=== PATIENT | male | born 1995 | race Caucasian/White ===

== ENCOUNTER 2017-06-15 15:22 | Emergency (ER) | payer MEDICAID, SELFPAY ==
[2017-06-15 16:24] VITALS: BP 110/74; PULSE 75; RESP 16; TEMP 37.1; O2SAT 98; BMI 21.2
--- NOTE | 2017-06-15 16:49 | HMH.EDUTC ---
[place] Clinical Impression: Rash Disposition: Home, Self-Care Condition on Discharge: Good Instructions: DI for Rash, DI for General Allergic Reactions Additional Instructions: Follow up with family doctor if symptoms worsen or do not improve Return if needed Check house for insects/bugs make sure to check your bed and carpet Follow up with Dermatology if symptoms persist Aveeno baths may help with itching Prescriptions: Hydrocortisone [Hydrocortisone 2.5% Cream 28gm Tube] 1 gm TOPICAL QID #1 cream..g. Referrals: Kristi Govea MD [Consulting Physician] - Time of Disposition: 17:13 Medical Decision Making - Medical Records Medical records reviewed: Yes: I reviewed the patient's medical records. Vital Signs: 06/15/17 16:24 Temperature 98.7 F Temperature Source Oral Pulse Rate [Left Brachial] 75 Respiratory Rate 16 Blood Pressure [Right Arm] 110/74 Blood Pressure Mean [Right Arm] 86 Blood Pressure Source [Right Arm] Automatic Cuff Blood Pressure Position [Right Arm] Sitting 02 Sat by Pulse Oximetry 98 Oxygen Delivery Method Room Air - John Inquiry Pt receiving controlled substance: No John was queried for this patient: No [facility] [place] - General Stated complaint: Rash Back and Stomach Mode of Arrival: Ambulatory Source of Information: Patient Limitations: No Limitations Description of Symptoms (Recalled from Triage Doc. by RN): RASH X 4 DAYS. GETS WORSE WHEN HE GETS HOT HEENT Symptoms (Recalled from RN notes): No Resp Symptoms (Recalled from RN notes): No Skin Symptoms (Recalled from RN notes): Yes (RASH) MS Symptoms (Recalled from RN notes): No Functional Status (Recalled from RN notes): NA - History of Present Illness Provider Complaint: Patient state that for the last 4 days he noticed that he had some kind of rash on his arms, stomach, back and belt line of his pants State that he was worried that he may have scabies and wanted to have rash looked at to see - Related Data Previous Rx's Medication Instructions Recorded Hydrocortisone [Hydrocortisone 1 gm TOPICAL QID #1 cream..g. 06/15/17 2.5% Cream 28gm Tube] Allergies Allergy/AdvReac Type Severity Reaction Status Date / Time amoxicillin [AMOXICILLIN] Allergy Unknown Unverified 05/14/17 15:01 azithromycin Allergy Unknown Unverified 05/14/17 15:01 [From ZITHROMAX Z-GLEN] - Worker's Comp Is this a Worker's Comp case?: No H History I have reviewed the patient's past medical history: Yes Medical History: Denies:: Cancer, Diabetes Mellitus Type 1, Diabetes Mellitus Type 2, MRSA Amputation: No Fractures: No - *Social History Alcohol Intake: never - Psychiatric History Expresses thoughts of harming self/others: None Suicide Plan Description: No Plan ROS Obtained: Yes All systems reviewed & no additional complaints - Integumentary/Breasts Skin/Breast: Reports rash Physical Exam - General General appearance: alert, in no apparent distress - Respiratory Respiratory exam: Present: normal lung sounds bilaterally. Absent: respiratory distress - Cardiovascular Cardiovascular exam: Present: regular rate, normal rhythm. Absent: JVD - Neurological Exam Neurological exam: Present: alert, oriented X3 - Skin Skin exam: Present: rash, other (Raised round red rash like that seen with insect bites no signs of rash between fingers like that seen with scabies, patient had bites/rash noted on chest, back, arms and belt line States that itching seems worse when he gets hot and recently started after friends stayed at his house and unsure if they may have brought something in on them)
--- NOTE | 2017-06-15 17:02 | ED_ITS ---
[facility] [place] Clinical Impression: Rash Disposition: Home, Self-Care Condition on Discharge: Good Instructions: DI for Rash, DI for General Allergic Reactions Additional Instructions: Follow up with family doctor if symptoms worsen or do not improve Return if needed Check house for insects/bugs make sure to check your bed and carpet Follow up with Dermatology if symptoms persist Aveeno baths may help with itching Prescriptions: Hydrocortisone [Hydrocortisone 2.5% Cream 28gm Tube] 1 gm TOPICAL QID #1 cream..g. Referrals: Kristi Govea MD [Consulting Physician] - Time of Disposition: 17:13 Medical Decision Making - Medical Records Medical records reviewed: Yes: I reviewed the patient's medical records. Vital Signs: 06/15/17 16:24 Temperature 98.7 F Temperature Source Oral Pulse Rate [Left Brachial] 75 Respiratory Rate 16 Blood Pressure [Right Arm] 110/74 Blood Pressure Mean [Right Arm] 86 Blood Pressure Source [Right Arm] Automatic Cuff Blood Pressure Position [Right Arm] Sitting 02 Sat by Pulse Oximetry 98 Oxygen Delivery Method Room Air - John Inquiry Pt receiving controlled substance: No John was queried for this patient: No [facility] [place] - General Stated complaint: Rash Back and Stomach Mode of Arrival: Ambulatory Source of Information: Patient Limitations: No Limitations Description of Symptoms (Recalled from Triage Doc. by RN): RASH X 4 DAYS. GETS WORSE WHEN HE GETS HOT HEENT Symptoms (Recalled from RN notes): No Resp Symptoms (Recalled from RN notes): No Skin Symptoms (Recalled from RN notes): Yes (RASH) MS Symptoms (Recalled from RN notes): No Functional Status (Recalled from RN notes): NA - History of Present Illness Provider Complaint: Patient state that for the last 4 days he noticed that he had some kind of rash on his arms, stomach, back and belt line of his pants State that he was worried that he may have scabies and wanted to have rash looked at to see - Related Data Previous Rx's Medication Instructions Recorded Hydrocortisone [Hydrocortisone 1 gm TOPICAL QID #1 cream..g. 06/15/17 2.5% Cream 28gm Tube] Allergies Allergy/AdvReac Type Severity Reaction Status Date / Time amoxicillin [AMOXICILLIN] Allergy Unknown Unverified 05/14/17 15:01 azithromycin Allergy Unknown Unverified 05/14/17 15:01 [From ZITHROMAX Z-GLEN] - Worker's Comp Is this a Worker's Comp case?: No H History I have reviewed the patient's past medical history: Yes Medical History: Denies:: Cancer, Diabetes Mellitus Type 1, Diabetes Mellitus Type 2, MRSA Amputation: No Fractures: No - *Social History Alcohol Intake: never - Psychiatric History Expresses thoughts of harming self/others: None Suicide Plan Description: No Plan ROS Obtained: Yes All systems reviewed & no additional complaints - Integumentary/Breasts Skin/Breast: Reports rash Physical Exam - General General appearance: alert, in no apparent distress - Respiratory Respiratory exam: Present: normal lung sounds bilaterally. Absent: respiratory distress - Cardiovascular Cardiovascular exam: Present: regular rate, normal rhythm. Absent: JVD - Neurological Exam Neurological exam: Present: alert, oriented X3 - Skin Skin exam: Present: rash, other (Raised round red rash
[2017-06-15 17:18] VITALS: BP 108/60; PULSE 85; RESP 14; TEMP 36.7; O2SAT 99
== END 2017-06-15 17:18 | disposition home or self-care (01) ==
PROVIDERS: Emergency Provider Nurse Practitioner; Family Provider Family Medicine
DX: R21 Rash and other nonspecific skin eruption (principal); Z88.1 Allergy status to other antibiotic agents; Z88.3 Allergy status to other anti-infective agents
CPT/HCPCS: 99201

== ENCOUNTER 2018-11-12 09:24 | Emergency (ER) | payer SELFPAY ==
--- NOTE | 2018-11-12 09:35 | XR_ITS ---
XR knee LT 3V HISTORY: Posttraumatic pain ITS.REASON: pain ORDERING PHYSICIAN: Frances Vasquez APRN PATIENT AGE: 23 years COMPARISON: None FINDINGS: No fracture or dislocation. No lytic or blastic change. Normal mineralization. No significant arthritic changes evident. There may be a small suprapatellar effusion. There is some mild soft tissue swelling at the tibial tuberosity. IMPRESSION: No acute fracture. Possible small suprapatellar effusion
[2018-11-12 09:39] VITALS: BP 141/69; PULSE 90; RESP 18; TEMP 36.7; O2SAT 95; BMI 21.4
--- NOTE | 2018-11-12 09:43 | PC.NURSE ---
PT TO RAD
--- NOTE | 2018-11-12 09:56 | HMH.EDUTC ---
[facility] [place] Disposition Clinical Impression: Left knee injury Qualifiers: Encounter type: initial encounter Qualified Code(s): S89.92XA - Unspecified injury of left lower leg, initial encounter Disposition: Home, Self-Care Condition on Discharge: Good Instructions: DI for Knee Pain, How To Perform RICE (Rest, Ice, Compress, Elevate), How to Apply an Collin Wrap Additional Instructions: *weight bearing as tolerated *RICE, Rest the extremity, Ice 15-20 minutes 3-4 times daily, Compress- wear the collin wrap as discussed as much as possible to help reduce swelling and pain, Elevate the extremity when at rest *Collin wrap is for support and help control swelling, use it except in the shower. Be sure that is not to tight but not to loose either *Elevate when resting *Over the counter Ibuprofen 600-800mg every 6-8 hours as needed for pain an inflammation. If need something more can take Tylenol in between doses of Ibuprofen to help Immediately follow up with your family doctor for new or worsening of symptoms, or no noticeable improvement over the next 3-5 days Follow up with family doctor or Orthopedics if no improvement Call back to [facility] later this evening for official radiology reading of your knee xray Straight to ER if any life threatening symptoms Referrals: Provider,Referral, MD [Primary Care Provider] - As needed Natasha Hagan MD [Physician] - Hi Kang MD [Staff Physician] - Forms: Work/School Release Time of Disposition: 10:04 Medical Decision Making - John Inquiry Pt receiving controlled substance: No John was queried for this patient: No Vital Signs: 11/12/18 09:39 Temperature 98.1 F Temperature Source Oral Pulse Rate [Right Radial] 90 Respiratory Rate 18 Blood Pressure [Right Arm] 141/69 H Blood Pressure Mean [Right Arm] 93 Blood Pressure Source [Right Arm] Automatic Cuff Blood Pressure Position [Right Arm] Sitting 02 Sat by Pulse Oximetry 95 Oxygen Delivery Method Room Air Orders (Tests/Meds): ORDERS Category Date Time Status XR knee LT 3V Stat Exams 11/12/18 09:35 Ordered - Radiology Data #1 Image(s): Knee Image Reviewed: Yes I reviewed the patient's radiology image w/the ED provider Preliminary Findings: No Fracture Seen Discussed with Dr Mcconnell, no acute fracture, small effusion [facility] [place] HPI - General Stated complaint: lt knee swollen and hurting ao [id number] @2300 Time Seen by Provider: 11/12/18 09:56 Mode of Arrival: Ambulatory Source of Information: Patient Limitations: No Limitations Description of Symptoms (Recalled from Triage Doc. by RN): C/O LT KNEE PAIN. PT STATES THAT HE HIT IT ON SOME SLATS AT WORK LAST NIGHT. HEENT Symptoms (Recalled from RN notes): No Resp Symptoms (Recalled from RN notes): No Skin Symptoms (Recalled from RN notes): No MS Symptoms (Recalled from RN notes): Yes (LT KNEE INJURY) Functional Status (Recalled from RN notes): N/A - History of Present Illness Provider Complaint: Patient states that he was at work last night and fell into a plastic base and hit his left knee on the corner of the base State that ever since he has been having pain and swelling in the left knee and hurts when she walks - Related Data Previous Rx's Medication Instructions Recorded Hydrocortisone [Hydrocortisone 1 gm TOPICAL QID #1 cream..g. 06/15/17 2.5% Cream 28gm Tube] Allergies Allergy/AdvReac Type Severity Reaction Status Date / Time amoxicillin [AMOXICILLIN] Allergy Unknown Unverified 05/14/17 15:01 azithromycin Allergy Unknown Unverified 05/14/17 15:01 [From ZITHROMAX Z-GLEN] - Worker's Comp Is this a Worker's Comp case?: No [facility] History - Hepatitis A Screen Drug use history?: No High risk sexual behaviors?: No History of sexually transmitted infection?: No Currently employed?: No Childcare worker?: No Do you have indoor plumbing?: Yes Do you have electricity?: Yes Attestation statement:: This patient has been screened for Hepatiti
--- NOTE | 2018-11-12 09:59 | ED_ITS ---
[facility] [place] Disposition Clinical Impression: Left knee injury Qualifiers: Encounter type: initial encounter Qualified Code(s): S89.92XA - Unspecified injury of left lower leg, initial encounter Disposition: Home, Self-Care Condition on Discharge: Good Instructions: DI for Knee Pain, How To Perform RICE (Rest, Ice, Compress, Elevate), How to Apply an Collin Wrap Additional Instructions: *weight bearing as tolerated *RICE, Rest the extremity, Ice 15-20 minutes 3-4 times daily, Compress- wear the collin wrap as discussed as much as possible to help reduce swelling and pain, Elevate the extremity when at rest *Ocllin wrap is for support and help control swelling, use it except in the shower. Be sure that is not to tight but not to loose either *Elevate when resting *Over the counter Ibuprofen 600-800mg every 6-8 hours as needed for pain an inflammation. If need something more can take Tylenol in between doses of Ibuprofen to help Immediately follow up with your family doctor for new or worsening of symptoms, or no noticeable improvement over the next 3-5 days Follow up with family doctor or Orthopedics if no improvement Call back to [facility] later this evening for official radiology reading of your knee xray Straight to ER if any life threatening symptoms Referrals: Provider,Referral, MD [Primary Care Provider] - As needed Natasha Hagan MD [Physician] - Hi Kang MD [Staff Physician] - Forms: Work/School Release Time of Disposition: 10:04 Medical Decision Making - John Inquiry Pt receiving controlled substance: No John was queried for this patient: No Vital Signs: 11/12/18 09:39 Temperature 98.1 F Temperature Source Oral Pulse Rate [Right Radial] 90 Respiratory Rate 18 Blood Pressure [Right Arm] 141/69 H Blood Pressure Mean [Right Arm] 93 Blood Pressure Source [Right Arm] Automatic Cuff Blood Pressure Position [Right Arm] Sitting 02 Sat by Pulse Oximetry 95 Oxygen Delivery Method Room Air Orders (Tests/Meds): ORDERS Category Date Time Status XR knee LT 3V Stat Exams 11/12/18 09:35 Ordered - Radiology Data #1 Image(s): Knee Image Reviewed: Yes I reviewed the patient's radiology image w/the ED provider Preliminary Findings: No Fracture Seen Discussed with Dr Mcconnell, no acute fracture, small effusion [facility] [place] HPI - General Stated complaint: lt knee swollen and hurting ao [id number] @2300 Time Seen by Provider: 11/12/18 09:56 Mode of Arrival: Ambulatory Source of Information: Patient Limitations: No Limitations Description of Symptoms (Recalled from Triage Doc. by RN): C/O LT KNEE PAIN. PT STATES THAT HE HIT IT ON SOME SLATS AT WORK LAST NIGHT. HEENT Symptoms (Recalled from RN notes): No Resp Symptoms (Recalled from RN notes): No Skin Symptoms (Recalled from RN notes): No MS Symptoms (Recalled from RN notes): Yes (LT KNEE INJURY) Functional Status (Recalled from RN notes): N/A - History of Present Illness Provider Complaint: Patient states that he was at work last night and fell into a plastic base and hit his left knee on the corner of the base State that ever since he has been having pain and swelling in the left knee and hurts when she walks - Related Data Previous Rx's Medication Instructions Recorded Hydrocortisone [Hydrocortisone 1 gm TOPICAL QID #1 cream..g.
[2018-11-12 10:09] VITALS: BP 141/69; PULSE 90; RESP 18; TEMP 36.7; O2SAT 95
== END 2018-11-12 10:10 | disposition home or self-care (01) ==
PROVIDERS: Emergency Provider Nurse Practitioner; PCP Emergency Medicine
DX: S89.92XA Unspecified injury of left lower leg, initial encounter (principal); W22.8XXA Striking against or struck by other objects, initial encounter
CPT/HCPCS: 73562; 99201

== ENCOUNTER 2021-02-10 15:03 | Emergency (ER) | payer SELFPAY ==
[2021-02-10 16:20] VITALS: BP 140/87; PULSE 78; RESP 16; TEMP 36.7; O2SAT 100; BMI 20.7
--- NOTE | 2021-02-10 16:24 | XR_ITS ---
PROCEDURE INFORMATION: Exam: XR Left Clavicle, Complete Exam date and time: 02/10/2021 4:24 PM Age: 25 years old Clinical indication: Left; Patient HX: Pain lt shoulder; Additional info: Pain, swelling, no known injury TECHNIQUE: Imaging protocol: XR Left clavicle complete. Views: Any number of views. COMPARISON: CR XR SHOULDER LT MIN 2V 02/10/2021 4:30 PM FINDINGS: Bones/joints: Osseous anatomic alignment is well preserved. No acutely displaced fracture or dislocation. Joint spaces are well preserved. Soft tissues: There is no significant soft tissue swelling. Visualized chest is unremarkable. IMPRESSION: Negative for acute skeletal pathology.
--- NOTE | 2021-02-10 16:24 | XR_ITS ---
PROCEDURE INFORMATION: Exam: XR Left Shoulder Exam date and time: 02/10/2021 4:24 PM Age: 25 years old Clinical indication: Left; Patient HX: Lt shoulder pain; Additional info: Pain, swelling, no known injury TECHNIQUE: Imaging protocol: XR Left shoulder. Views: 2 or more views. COMPARISON: CR CXR CHEST(2 VIEWS-NOT PORTABLE) 05/05/2015 12:59 AM FINDINGS: Bones/joints: Osseous anatomic alignment is well preserved. No acutely displaced fracture or dislocation. Joint spaces are well preserved. Soft tissues: There is no significant soft tissue swelling. Visualized chest is unremarkable. IMPRESSION: Negative for acute skeletal pathology.
--- NOTE | 2021-02-10 17:37 | HMH.EDUTC ---
[facility] [place] Disposition Clinical Impression: Tendinopathy of right shoulder Right shoulder pain Qualifiers: Chronicity: acute Qualified Code(s): M25.511 - Pain in right shoulder Disposition: Home, Self-Care Condition on Discharge: Good Additional Instructions: Go home and rest. It would be best if you rested it for the next few days at least. Rest the extremity, apply ice for 15 minutes as tolerated three or four times per day, Elevate the extremity as tolerated while you are resting. Take the steroids (medrol dose pack) as directed. Follow up with Dr. Kang (orthopedics). I put in a referral but you need to call his office and schedule an appointment. You really need to follow up regardless if the medications help you that we prescribed. Your symptoms could come back later. Follow up with your regular doctor. GO TO THE ER FOR ANY WORSENING SYMPTOMS The muscle relaxer (cyclobenzaprine-flexeril) might not help much, because it's not likely to be a muscle that's causing your symptoms. But, this medication might at least help you get comfortable enough to sleep for a time. It will make you drowsy, so don't drive or operate heavy machinery after taking it. Prescriptions: Cyclobenzaprine HCl [Cyclobenzaprine 10mg Tab] 10 mg PO BIDP PRN #20 tab PRN Reason: Muscle Spasm Transmission Status: Received by [id number] methylPREDNISolone [Medrol] 4 mg PO DIRECTED 6 Days #21 packet Transmission Status: Received by [id number] Referrals: Mathew Yanez MD [Primary Care Provider] - Hi Kang MD [Staff Physician] - Forms: Work/School Release Time of Disposition: 17:58 Medical Decision Making - Medical Records Medical records reviewed: No: I reviewed the patient's medical records. - John Inquiry Pt receiving controlled substance: No Vital Signs: 02/10/21 16:20 02/10/21 18:08 Temperature 98.1 F 98.1 F Temperature Source Oral Pulse Rate 78 Pulse Rate [Right Radial] 78 Respiratory Rate 16 16 Blood Pressure 140/87 Blood Pressure [Right Arm] 140/87 Blood Pressure Mean [Right Arm] 104 Blood Pressure Source [Right Arm] Automatic Cuff Blood Pressure Position [Right Arm] Sitting 02 Sat by Pulse Oximetry 100 Oxygen Delivery Method Room Air - Radiology Data #1 Image(s): Shoulder Image Reviewed: Yes I reviewed the patient's radiology image, Yes I have reviewed radiologist's interpretation Preliminary Findings: Normal/NAD, No Fracture Seen PROCEDURE INFORMATION: Exam: XR Left Shoulder Exam date and time: 02/10/2021 4:24 PM Age: 25 years old Clinical indication: Left; Patient HX: Lt shoulder pain; Additional info: Pain, swelling, no known injury TECHNIQUE: Imaging protocol: XR Left shoulder. Views: 2 or more views. COMPARISON: CR CXR CHEST(2 VIEWS-NOT PORTABLE) 05/05/2015 12:59 AM FINDINGS: Bones/joints: Osseous anatomic alignment is well preserved. No acutely displaced fracture or dislocation. Joint spaces are well preserved. Soft tissues: There is no significant soft tissue swelling. Visualized chest is unremarkable. IMPRESSION: Negative for acute skeletal pathology. #2 Image(s): Clavicle Image Reviewed: Yes I reviewed the patient's radiology image, Yes I have reviewed radiologist's interpretation Preliminary Findings: Normal/NAD, No Fracture Seen PROCEDURE INFORMATION: Exam: XR Left Clavicle, Complete Exam date and time: 02/10/2021 4:24 PM Age: 25 years old Clinical indication: Left; Patient HX: Pain lt shoulder; Additional info: Pain, swelling, no known injury TECHNIQUE: Imaging protocol: XR Left clavicle complete. Views: Any number of views. COMPARISON: CR XR SHOULDER LT MIN 2V 02/10/2021 4:30 PM FINDINGS: Bones/joints: Osseous anatomic alignment is well preserved. No acutely displaced fracture or dislocation. Join
[2021-02-10 18:08] VITALS: BP 140/87; PULSE 78; RESP 16; TEMP 36.7; O2SAT 100
== END 2021-02-10 18:09 | disposition home or self-care (01) ==
PROVIDERS: Emergency Provider Nurse Practitioner Family; PCP Emergency Medicine
DX: M67.912 Unspecified disorder of synovium and tendon, left shoulder (principal)
CPT/HCPCS: 73000; 73030; 99202; G0463

== ENCOUNTER 2021-06-15 14:19 | Emergency (ER) | payer SELFPAY ==
[2021-06-15 14:20] VITALS: BP 162/95; PULSE 117; RESP 16; TEMP 36.7; O2SAT 97; BMI 21.4
--- NOTE | 2021-06-15 15:23 | HMH.EDGENADL ---
ED Disposition Clinical Impression: Neck pain Left shoulder pain Qualifiers: Chronicity: acute Qualified Code(s): M25.512 - Pain in left shoulder Disposition: Home, Self-Care Condition on Discharge: Good Additional Instructions: Sling as needed Prednisone as prescribed. Sweet as needed for pain. Follow-up with orthopedics, Dr. Grant, call for appointment. Off work until Saturday. Additional instructions for CONTROLLED SUBSTANCES: You have been prescribed a medication that is a controlled substance. Controlled substances include pain medications known as opiates and sedative nerve medications known as benzodiazepines. Tramadol, fioricet, and gabapentin are also controlled substances. Some common opiates include: Codeine (such as Tylenol #3) Hydrocodone (Vicodin, Lortab, Lorcet, Sweet) Oxycodone (Percocet, Percodan, Oxycodone, Oxy IR) Some common benzodiazepines include: Diazepam (Valium) Lorazepam (Ativan) Alprazolam (Xanax) Clonazepam (Klonopin) Oxazepam (Serax) All of these controlled substances are highly addictive and frequently abused. Misuse can and frequently does lead to addiction as well as overdose and . Medication should be stored in a locked cabinet or other secure storage unit. Do not store the medication in a motor vehicle. Short term supplies, 3 days or less, are prescribed because of the highly addictive nature of the medication. Any of the controlled substance medication NOT taken should be disposed of properly and NOT SAVED. The recommended method of disposing of unused medications is: Place the medicines in a sealable plastic bag. If the medicine is a solid, crush it or add water to dissolve it. Add something undesirable (cat litter, coffee grounds, etc.) Dispose of sealed bag in household trash Do not flush or pour unused medicines down a sink or drain. Controlled substances should not be shared, given away or sold. Because of the addictive nature and frequent abuse, these medications are sometimes stolen. These medications should be kept in a safe place where they cannot be stolen. Do not keep them in your car or purse. Lost or stolen prescriptions for controlled substances WILL NOT BE REFILLED in this emergency department, regardless of whether a police report was filed. Prescriptions: Hydrocod/Acet 5/325 mg [Sweet 5/325mg tablet] 1 tab PO Q6HP PRN #10 tab PRN Reason: Pain Transmission Status: Received by [facility] # predniSONE [Prednisone 20mg Tab] 20 mg PO BID #10 tab Transmission Status: Received by [facility] # Referrals: Mathew Yanez MD [Primary Care Provider] - Efra Grant JR, MD [Physician] - Forms: Work/School Release - Critical Care Critical Care Time: No Attestation: On 06/15/21, the high probability of a clinically significant, sudden or life threatening deterioration of the following system(s) required my full and direct attention, intervention and personal management. The time I documented below is in addition to time spent performing reported procedures but includes the following listed in this critical care notation. Medical Decision Making - John Inquiry Pt receiving controlled substance: Yes John was queried for this patient: Yes Risks and benefits of using a controlled substance: were discussed with pt by me Vital Signs: 06/15/21 14:20 Temperature 98.1 F Temperature Source Oral Pulse Rate [Right Radial] 117 H Respiratory Rate 16 Blood Pressure [Right Arm] 162/95 H Blood Pressure Mean [Right Arm] 117 Blood Pressure Source [Right Arm] Automatic Cuff Blood Pressure Position [Right Arm] Sitting 02 Sat by Pulse Oximetry 97 Oxygen Delivery Method Room Air Orders (Tests/Meds): ED MEDICATIONS Discontinued Medications Generic Name Dose Route Start Last Admin Trade Name Freq PRN Reason Stop Dose Admin Dexamethasone Sodium Phosphate 10 mg 06/15/21 16:14
--- NOTE | 2021-06-15 15:38 | XR_ITS ---
FINAL REPORT CLINICAL HISTORY: left sided neck pain, stiff neck, no injury FINDINGS: 3 Views were obtained. There is no acute fracture. There is straightening of the normal cervical curvature which could be due to positioning or muscle spasm. There is leftward curvature. There is no malalignment. The disc spaces are maintained. IMPRESSION: No acute process. Reviewed, Interpreted and Dictated by Lauri Jose III, MD Transcribed by Caio Crowder Authenticated by Lauri Jose III, MD on 06/15/2021 04:25:[address] [facility]
--- NOTE | 2021-06-15 15:39 | XR_ITS ---
FINAL REPORT CLINICAL HISTORY: left shoulder pain, into left side of neck FINDINGS: LEFT SHOULDER 3 views demonstrate no acute fracture or dislocation. The joint spaces appear normal. The visualized bony structures are well aligned. No soft tissue abnormality is seen. IMPRESSION: No acute process. Reviewed, Interpreted and Dictated by Lauri Jose III, MD Transcribed by Caio Crowder Authenticated by Lauri Jose III, MD on 06/15/2021 04:25:08 PM [facility]
[2021-06-15 16:58] VITALS: BP 138/79; PULSE 82; RESP 14; TEMP 36.9; O2SAT 98
== END 2021-06-15 17:02 | disposition home or self-care (01) ==
PROVIDERS: Emergency Provider Emergency Medicine; PCP Emergency Medicine
DX: M54.2 Cervicalgia (principal); M25.512 Pain in left shoulder
CPT/HCPCS: 72040; 73030; 96372; 99282